=== PATIENT | male | born 1945 | race Caucasian/White ===

== ENCOUNTER 2020-05-17 10:27 | Inpatient (IN) ==
[2020-05-17] MEDS ORDERED: SODIUM CHLORIDE 0.9% 1000ML 1,000 ML IV SCH (11:00)
[2020-05-17] MEDS ORDERED: ONDANSETRON INJ 2 MG/ML 2 ML VIAL IV STA (11:04)
[2020-05-17 12:05] LABS: Hematocrit (blood only) 35.9 % (42-52); Hemoglobin 12.5 g/dL (14.0-18.0); Mean Corpuscular Hemoglobin 33.6 pg (25-34); Mean Corpuscular Hgb Conc 34.8 g/dL (32-36); Mean Corpuscular Volume 96.5 fL (80-100); Mean Platelet Volume 9.5 fL (7.4-10.4); Platelet Count 224 K/uL (130-400); RDW Coefficient of Variation 13.2 % (11.5-14.5); RDW Standard Deviation 46.2 fL (36.4-46.3); Red Blood Count 3.72 M/uL (4.7-6.1); White Blood Count 3.95 K/uL (4.8-10.8)
[2020-05-17 12:16] LABS: INR 1.1 (0.9-1.1); Prothrombin Time 11.9 Seconds (9.0-12.0)
--- NOTE | 2020-05-17 12:17 | XRay Report ---
XR chest 1V portable CLINICAL HISTORY: weakness COMPARISON STUDY: No previous studies for comparison. FINDINGS: The heart is normal in size. There are bilateral pulmonary airspace opacities. A multifocal pneumonia is favored over asymmetric edema. Correlation with Covid 19 testing is recommended. There are no pleural effusions.[ IMPRESSION: 1. Bilateral pulmonary airspace opacities. The findings likely represent a multifocal pneumonitis. Cl inical and radiographic follow-up is recommended. ACT 112: Negative or not required by law. Electronically signed by: Jon Sierra M.D. 05/17/2020 12:15 PM
[2020-05-17 12:21] LABS: Albumin Level 2.4 gm/dl (3.4-5.0); BUN Creatinine Ratio 18.2 (10-20); Calcium 8.2 mg/dl (8.5-10.1); Creatinine Clr Calc Pharmacy 53.9 ml/min; Est GFR (Non-African American) 53.5; Magnesium 2.6 mg/dl (1.8-2.4); Potassium 3.8 mmol/L (3.5-5.1)
[2020-05-17 12:31] LABS: D Dimer 1560 ug/L FEU (0-500)
[2020-05-17 12:34] LABS: Albumin Globulin Ratio 0.6 (0.9-2); Bilirubin,Total 0.8 mg/dl (0.2-1); Thyroid Stimulating Hormone 0.855 uIu/ml (0.300-4.500); Total Protein 6.4 gm/dl (6.4-8.2); Troponin I 0.021 ng/ml (0-0.045)
[2020-05-17 12:35] LABS: Basophils # (auto) 0.01 K/uL (0-0.2); Basophils % (auto) 0.3 %; Immature Granulocytes # (auto) 0.01 K/uL (0.00-0.02); Immature Granulocytes % (auto) 0.3 %; Lymphocytes # (auto) 0.97 K/uL (1.2-3.4); Lymphocytes % (auto) 24.6 %; Monocytes # (auto) 0.09 K/uL (0.11-0.59); Monocytes % (auto) 2.3 %; Neutrophils # (auto) 2.87 K/uL (1.4-6.5); Neutrophils % (auto) 72.5 %
[2020-05-17] MEDS ORDERED: OPTIRAY 320 125ml IV ONE (13:07)
--- NOTE | 2020-05-17 13:21 | CT Scan Report ---
CT ANGIOGRAPHY OF THE CHEST, PULMONARY EMBOLUS PROTOCOL CLINICAL HISTORY: PE, +dimer, COVID, SOB COMPARISON STUDY: Chest radiograph May 17, 2020. TECHNIQUE: Following IV administration of 114 mL of Optiray-320, helical axial images of the chest we re obtained utilizing the pulmonary embolus protocol. Maximal intensity projections and sagittal and coronal reformats were viewed on an independent 3D workstation. IV contrast was administered withou t complication. Automated exposure control was utilized for the study. A dose lowering technique wa s utilized adhering to the principles of ALARA. CT DOSE: 558.35 mGycm FINDINGS: No pulmonary emboli are present. Ascending thoracic aorta is ectatic, measuring 4.2 cm at the level of the main pulmonary artery. There is mild cardiomegaly. No pericardial effusion is noted. There is no pneumothorax. Note is made of mildly enlarged mediastinal and bilateral hilar lymph node s. Index left hilar node measures 1.4 cm in short axis diameter. There is no pneumothorax. Small bila teral pleural effusions are present. Extensive groundglass opacities and interlobular septal thickeni ng throughout the lungs are noted. The central airways are patent. There is no cavitation. Several ol d left rib fractures are noted. Upper abdomen is unremarkable. IMPRESSION: 1. No pulmonary emboli identified. 2. Extensive groundglass opacities with interlobular septal thickening within the lungs. The findings suggest multifocal pneumonia. Superimposed mild pulmonary edema may be present. 3. Small bilateral pleural effusions. 4. Mildly enlarged bilateral hilar and mediastinal lymph nodes. These are likely reactive however a f ollow-up chest CT in 3 months to ensure resolution is recommended. 4. Cardiomegaly. ACT 112: Negative or not required by law. Electronically signed by: Alejandro Corado M.D. 05/17/2020 1:20 PM
[2020-05-17] MEDS ORDERED: DEXAMETHASONE SOD INJ 10 MG/ML VIAL IV ONE (14:09)
--- NOTE | 2020-05-17 14:24 | Electrocardiogram Report ---
Test Reason : Blood Pressure : / mmHG Vent. Rate : 058 BPM Atrial Rate : 058 BPM P-R Int : 178 ms QRS Dur : 088 ms QT Int : 450 ms P-R-T Axes : 046 062 050 degrees QTc Int : 441 ms Sinus bradycardia Otherwise normal ECG When compared with ECG of 26-JUN-2010 16:35, No significant change was found Confirmed by Jamir Morales ([id number]) on 05/17/2020 2:23:45 PM Referred By: Alexis Coats Confirmed By:Jamir Morales
[2020-05-17 14:30] LABS: Appearance Urine Clear (Clear); Bacteria Urine Automated Negative (Negative); Blood Urine Trace (Negative); Color Urine Dark Yellow; Epithelial Cell Urine Auto >30 /lpf (0-5); Glucose Urine UA Negative (Negative); Ketones Urine 1+ (Negative); Leukocyte Esterase Urine Negative (Negative); Nitrite Urine Negative (Negative); Protein Urine 2+ (Negative); RBC Urine Automated 0-4 /hpf (0-4); Specific Gravity Urine > 1.045 (1.000-1.030); Urobilinogen Urine Negative (Negative)
[2020-05-17 14:46] LABS: Bilirubin Urine Negative (Negative); Ictotest Urine Negative (Negative)
[2020-05-17 15:04] LABS: Mucus Urine Present (None Prsent)
--- NOTE | 2020-05-17 15:49 | Emergency Department Note ---
Impression & Plan COVID-19, Hypoxia, Nausea, Weakness ED Provider Note Provider: Andre Eddy MD DATE OF SERVICE:05/17/2020 CHIEF COMPLAINT: Weakness, Covid, shortness of breath, nausea, diarrhea HISTORY OF PRESENT ILLNESS: Patient is a 74-year-old gentleman history of thyroid dysfunction presenting here today reporting that he tested positive for coronavirus just after Thanksgiving and has been sick since then with decreased intake and some shortness of breath. States has been monitoring his pulse ox at home and has been in the low 90s with any exertion dropped in the high 80s. Patient states has been having intermittent fevers and significant nausea and diarrhea. Patient states he feels very washed out and feels exuding way and just wasting away. Patient states he has been seen a week ago I [facility] as well as a few days ago at [facility] and sent home both times from the ER. Patient states feels things are getting worse and he needs help as he just feels too weak and dehydrated. Patient denies significant chest pain at this time. Patient denies a history of smoking. Denies leg swelling or rashes. Denies abdominal pain but again states he feels crampy and having diarrhea with nausea. No clear vomiting reported. No blood reported in the diarrhea. REVIEW OF SYSTEMS: A total of 10 review of systems was obtained and negative except as stated above in the HPI. PAST MEDICAL HISTORY: As noted above MEDICATIONS: Reviewed home medications SOCIAL HISTORY: lives at home [place] non-smoker PHYSICAL EXAM: GENERAL: alert and oriented in no acute distress on stretcher in mask Head: normocephalic and atraumatic EYES: No injection, discharge or icterus. NECK: Trachea midline. Supple. LUNGS: Airway patent. No retractions. HEART: Regular rate and rhythm. No chest wall tenderness ABDOMEN: Soft and non-tender, without guarding or rebound. SKIN: Acyanotic, warm, dry, without rashes EXTREMITIES: Without swelling, tenderness or deformity NEUROLOGICAL: No focal deficits. No aphasia. No facial droop or slurred speech. Ambulatory. EK beats minute sinus bradycardia without PVC or PAC. No acute ST segment elevation or depression. Normal QRS duration and normal axis. QTc within normal limits CONTINUOUS CARDIAC MONITORING: was ordered and showed a heart rate of 60 bpm normal sinus rhythm Patient's laboratory studies and imaging reviewed. Differential includes Infection, dehydration, metabolic abnormality, hypo/hyperglycemia, electrolyte disturbance, anemia, hypoxia, cardiac sources, intracerebral event, toxicologic, neurologic, as well as other pathologies. IMPRESSION/MEDICAL DECISION MAKING: Patient maintained on isolation with known history of coronavirus infection with significant weakness during the infection as well as GI symptoms. No significant abdominal pain and lower suspicion for acute intra-abdominal path ology or perforation or diverticulitis or appendicitis or cholecystitis. Patient does desaturate with any exertion and even at resting his 89 to 90% on room air. No underlying history of lung disease reported. Does not appear in respiratory distress but quite fatigued and has been evaluated multiple times previously at other institutions. Blood work shows some lymphopenia consistent with coronavirus infection. He dimer is elevated and CT of the chest with complete without evidence of blood clots but inflammatory changes and some inflamed lymph nodes. Slight hyponatremia of 131 is noted but renal function is not significantly abnormal without a clear known baseline. Troponin detectable abnormal again not having significant chest pain. TSH within normal limits and lipase is not elevated not indicative of pancreatitis. AST slightly elevated consistent with coronavirus infection. Patient was on dexamethasone given the hypoxia needing a little bit of oxygen here. Patient rehydrated IV fluids given Zofran and was given some crackers and matthew chinmay to try to orally hydrate. Given significant fatigue, GI symptoms, weakness and oxygen requirement and discussed with the patient he wished for further observation care here at the hospital. The hospitalist contacted. I doubt acute bacterial infection at this time. DIAGNOSIS: COVID-19, nausea, hypoxia, weakness DISPOSITION: Hospitalist will evaluate Patient was agreeable with this plan. Past Med/Surg History Medical History (Updated 05/17/20 @ 16:23 by Angel Starr MD) History of prostate cancer Hypothyroidism Surgical History (Updated 05/17/20 @ 16:23 by Angel Starr MD) History of appendectomy History of back surgery 2011 L2-4 fusion History of prostatectomy Social History Smoking Status: Never smoker Feels Safe at Home: Yes Allergies Allergies Allergy/AdvReac Type Severity Reaction Status Date / Time No Known Drug Allergies Allergy Unknown . Verified 05/17/20 13:34 Home Meds Home Medications Medication Instructions Recorded Confirmed aspirin 81 mg PO QAM #0 06/26/10 05/17/20 acetaminophen [Tylenol Extra 1,000 mg PO Q6H PRN 05/17/20 05/17/20 Strength] cholecalciferol (vitamin D3) 25 mcg PO QAM 05/17/20 05/17/20 [Vitamin D3] levothyroxine 88 mcg PO QAM 05/17/20 05/17/20 zinc 50 mg PO QAM 05/17/20 05/17/20 Results & Data (ED) Vital Signs Vital Signs - 24 hr 05/17/20 10:39 05/17/20 11:45 05/17/20 13:15 Temperature 36.6 C Temperature Source Temporal Artery Scan Pulse Rate 68 Pulse Rate [Left Finger] 58 L Respiratory Rate 20 18 Blood Pressure 90/63 L Blood Pressure [Left Arm] 113/69 Blood Pressure Mean 72 Blood Pressure Mean [Left Arm] 83 Pulse Oximetry 92 92 90 Oxygen Delivery Method Room Air Room Air Room Air Oxygen Flow Rate 2 Sepsis Recent Fever Within 48 Hours No Sepsis New/Unexplained Change in Mental Status N/A Sepsis Action Taken by Nursing No Action Required 05/17/20 13:52 05/17/20 14:03 05/17/20 14:04 Temperature Temperature Source Pulse Rate Pulse Rate [Left Finger] 59 L Respiratory Rate 20 Blood Pressure Blood Pressure [Left Arm] 128/76 Blood Pressure Mean Blood Pressure Mean [Left Arm] 93 Pulse Oximetry 97 90 93 Oxygen Delivery Method Nasal Cannula Room Air Nasal Cannula Oxygen Flow Rate 2 2 2 Sepsis Recent Fever Within 48 Hours Sepsis New/Unexplained Change in Mental Status Sepsis Action Taken by Nursing 05/17/20 15:21 Temperature Temperature Source Pulse Rate Pulse Rate [Left Finger] 61 Respiratory Rate 18 Blood Pressure Blood Pressure [Left Arm] 112/63 Blood Pressure Mean Blood Pressure Mean [Left Arm] 79 Pulse Oximetry 99 Oxygen Delivery Method Nasal Cannula Oxygen Flow Rate 2 Sepsis Recent Fever Within 48 Hours Sepsis New/Unexplained Change in Mental Status Sepsis Action Taken by Nursing Laboratory Data Result diagrams: 05/17/20 11:49 05/17/20 11:49 Lab Results 05/17/20 05/17/20 05/17/20 Range/Units 11:49 11:49 11:49 WBC 3.95 L (4.8-10.8) K/uL RBC 3.72 L (4.7-6.1) M/uL Hgb 12.5 L (14.0-18.0) g/dL Hct 35.9 L (42-52) % MCV 96.5 (80-100) fL MCH 33.6 (25-34) pg MCHC 34.8 (32-36) g/dL RDW Std Deviation 46.2 (36.4-46.3) fL RDW Coeff of Amalia 13.2 (11.5-14.5) % Plt Count 224 (130-400) K/uL MPV 9.5 (7.4-10.4) fL Immature Gran % (Auto) 0.3 % Neut % (Auto) 72.5 % Lymph % (Auto) 24.6 % Cocke % (Auto) 2.3 % Eos % (Auto) 0.0 % Baso % (Auto) 0.3 % Neut # (Auto) 2.87 (1.4-6.5) K/uL Lymph # (Auto) 0.97 L (1.2-3.4) K/uL Cocke # (Auto) 0.09 L (0.11-0.59) K/uL Eos # (Auto) 0.00 (0-0.5) K/uL Baso # (Auto) 0.01 (0-0.2) K/uL Immature Gran # (Auto) 0.01 (0.00-0.02) K/uL PT 11.9 (9.0-12.0) Seconds INR 1.1 (0.9-1.1) D-Dimer 1560 H* (0-500) ug/L FEU Sodium 131 L (136-145) mmol/L Potassium 3.8 (3.5-5.1) mmol/L Chloride 100 (98-107) mmol/L Carbon Dioxide 24 (21-32) mmol/L Anion Gap 7.0 (3-11) BUN 24 H (7-18) mg/dl Creatinine 1.32 (0.6-1.4) mg/dl Est Cr Clr Drug Dosing 53.9 ml/min Est GFR ( Amer) 62.0 Est GFR (Non-Af Amer) 53.5 BUN/Creatinine Ratio 18.2 (10-20) Glucose 123 H (70-99) mg/dl Lactate (0.4-2.0) mmol/L Calcium 8.2 L (8.5-10.1) mg/dl Magnesium 2.6 H (1.8-2.4) mg/dl Total Bilirubin 0.8 (0.2-1) mg/dl AST 57 H (15-37) U/L ALT 50 (12-78) U/L Alkaline Phosphatase 105 (45-117) U/L Lactate Dehydrogenase (87-241) U/L Total Creatine Kinase (39-308) U/L Troponin I 0.021 (0-0.045) ng/ml C-Reactive Protein (0-0.29) mg/dl Total Protein 6.4 (6.4-8.2) gm/dl Albumin 2.4 L (3.4-5.0) gm/dl Globulin 4.0 (2.5-4.0) gm/dl Albumin/Globulin Ratio 0.6 L (0.9-2) Lipase 355 (73-393) U/L Procalcitonin (0-0.5) ng/ml TSH 0.855 (0.300-4.500) uIu/ml Urine Color Urine Appearance (Clear) Urine pH (4.5-7.5) Ur Specific [place] (1.000-1.030) Urine Protein (Negative) Urine Glucose (UA) (Negative) Urine Ketones (Negative) Urine Blood (Negative) Urine Nitrite (Negative) Urine Bilirubin (Negative) Urine Urobilinogen (Negative) Ur Leukocyte Esterase (Negative) Urine WBC (Auto) (0-5) /hpf Urine RBC (Auto) (0-4) /hpf U Hyaline Cast (Auto) (0-5) /lpf U Epithel Cells (Auto) (0-5) /lpf Urine Bacteria (Auto) (Negative) Ur Renal Epithelial Cell Granular Casts (0) /lpf WBC Casts (0) /lpf Urine Mucus (None Prsent) Urine Yeast 05/17/20 05/17/20 05/17/20 Range/Units 11:49 11:49 11:50 WBC (4.8-10.8) K/uL RBC (4.7-6.1) M/uL Hgb (14.0-18.0) g/dL Hct (42-52) % MCV (80-100) fL MCH (25-34) pg MCHC (32-36) g/dL RDW Std Deviation (36.4-46.3) fL RDW Coeff of Amalia (11.5-14.5) % Plt Count (130-400) K/uL MPV (7.4-10.4) fL Immature Gran % (Auto) % Neut % (Auto) % Lymph % (Auto) % [place]ke % (Auto) % Eos % (Auto) % Baso % (Auto) % Neut # (Auto) (1.4-6.5) K/uL Lymph # (Auto) (1.2-3.4) K/uL [place] # (Auto) (0.11-0.59) K/uL Eos # (Auto) (0-0.5) K/uL Baso # (Auto) (0-0.2) K/uL Immature Gran # (Auto) (0.00-0.02) K/uL PT (9.0-12.0) Seconds INR (0.9-1.1) D-Dimer (0-500) ug/L FEU Sodium (136-145) mmol/L Potassium (3.5-5.1) mmol/L Chloride (98-107) mmol/L Carbon Dioxide (21-32) mmol/L Anion Gap (3-11) BUN (7-18) mg/dl Creatinine (0.6-1.4) mg/dl Est Cr Clr Drug Dosing ml/min Est GFR ( Amer) Est GFR (Non-Af Amer) BUN/Creatinine Ratio (10-20) Glucose (70-99) mg/dl Lactate 1.2 (0.4-2.0) mmol/L Calcium (8.5-10.1) mg/dl Magnesium (1.8-2.4) mg/dl Total Bilirubin (0.2-1) mg/dl AST (15-37) U/L ALT (12-78) U/L Alkaline Phosphatase (45-117) U/L Lactate Dehydrogenase 389 H (87-241) U/L Total Creatine Kinase (39-308) U/L Troponin I (0-0.045) ng/ml C-Reactive Protein (0-0.29) mg/dl Total Protein (6.4-8.2) gm/dl Albumin (3.4-5.0) gm/dl Globulin (2.5-4.0) gm/dl Albumin/Globulin Ratio (0.9-2) Lipase (73-393) U/L Procalcitonin 0.28 (0-0.5) ng/ml TSH (0.300-4.500) uIu/ml Urine Color Urine Appearance (Clear) Urine pH (4.5-7.5) Ur Specific [place] (1.000-1.030) Urine Protein (Negative) Urine Glucose (UA) (Negative) Urine Ketones (Negative) Urine Blood (Negative) Urine Nitrite (Negative) Urine Bilirubin (Negative) Urine Urobilinogen (Negative) Ur Leukocyte Esterase (Negative) Urine WBC (Auto) (0-5) /hpf Urine RBC (Auto) (0-4) /hpf U Hyaline Cast (Auto) (0-5) /lpf U Epithel Cells (Auto) (0-5) /lpf Urine Bacteria (Auto) (Negative) Ur Renal Epithelial Cell Granular Casts (0) /lpf WBC Casts (0) /lpf Urine Mucus (None Prsent) Urine Yeast 05/17/20 05/17/20 Range/Units 11:50 13:55 WBC (4.8-10.8) K/uL RBC (4.7-6.1) M/uL Hgb (14.0-18.0) g/dL Hct (42-52) % MCV (80-100) fL MCH (25-34) pg MCHC (32-36) g/dL RDW Std Deviation (36.4-46.3) fL RDW Coeff of Amalia (11.5-14.5) % Plt Count (130-400) K/uL MPV (7.4-10.4) fL Immature Gran % (Auto) % Neut % (Auto) % Lymph % (Auto) % [place] % (Auto) % Eos % (Auto) % Baso % (Auto) % Neut # (Auto) (1.4-6.5) K/uL Lymph # (Auto) (1.2-3.4) K/uL [place] # (Auto) (0.11-0.59) K/uL Eos # (Auto) (0-0.5) K/uL Baso # (Auto) (0-0.2) K/uL Immature Gran # (Auto) (0.00-0.02) K/uL PT (9.0-12.0) Seconds INR (0.9-1.1) D-Dimer (0-500) ug/L FEU Sodium (136-145) mmol/L Potassium (3.5-5.1) mmol/L Chloride (98-107) mmol/L Carbon Dioxide (21-32) mmol/L Anion Gap (3-11) BUN (7-18) mg/dl Creatinine (0.6-1.4) mg/dl Est Cr Clr Drug Dosing ml/min Est GFR ( Amer) Est GFR (Non-Af Amer) BUN/Creatinine Ratio (10-20) Glucose (70-99) mg/dl Lactate (0.4-2.0) mmol/L Calcium (8.5-10.1) mg/dl Magnesium (1.8-2.4) mg/dl Total Bilirubin (0.2-1) mg/dl AST (15-37) U/L ALT (12-78) U/L Alkaline Phosphatase (45-117) U/L Lactate Dehydrogenase (87-241) U/L Total Creatine Kinase 115 (39-308) U/L Troponin I (0-0.045) ng/ml C-Reactive Protein 11.50 H (0-0.29) mg/dl Total Protein (6.4-8.2) gm/dl Albumin (3.4-5.0) gm/dl Globulin (2.5-4.0) gm/dl Albumin/Globulin Ratio (0.9-2) Lipase (73-393) U/L Procalcitonin (0-0.5) ng/ml TSH (0.300-4.500) uIu/ml Urine Color Dark Yellow Urine Appearance Clear (Clear) Urine pH 5.0 (4.5-7.5) Ur Specific [place] > 1.045 H (1.000-1.030) Urine Protein 2+ H (Negative) Urine Glucose (UA) Negative (Negative) Urine Ketones 1+ H (Negative) Urine Blood Trace H (Negative) Urine Nitrite Negative (Negative) Urine Bilirubin Negative (Negative) Urine Urobilinogen Negative (Negative) Ur Leukocyte Esterase Negative (Negative) Urine WBC (Auto) 5-10 H (0-5) /hpf Urine RBC (Auto) 0-4 (0-4) /hpf U Hyaline Cast (Auto) 1-5 (0-5) /lpf U Epithel Cells (Auto) >30 H (0-5) /lpf Urine Bacteria (Auto) Negative (Negative) Ur Renal Epithelial Cell Not Reportable Granular Casts 1-5 H (0) /lpf WBC Casts 1-5 H (0) /lpf Urine Mucus Present A (None Prsent) Urine Yeast Not Reportable Administered Medications Discontinued Medications Dexamethasone (Dexamethasone Sod Inj 10 Mg/Ml Vial) 6 mg IV NOW ONE Stop: 05/17/20 14:10 Last Admin: 05/17/20 15:19 Dose: 6 mg Documented by: [id number] Sodium Chloride (Nss 1000ml) 1,000 mls @ 999 mls/hr IV .Q1H1M SARTHAK Stop: 05/17/20 12:00 Last Infusion: 05/17/20 12:59 Dose: 0 mls/hr Documented by: [id number] Admin: 05/17/20 11:48 Dose: 999 mls/hr Documented by: [id number] Ioversol (Optiray 320 125ml) 114 ml IV ONCE ONE Stop: 05/17/20 13:08 Last Admin: 05/17/20 13:07 Dose: 114 ml Documented by: [id number] Ondansetron HCl (Ondansetron Inj 2 Mg/Ml 2 Ml Vial) 4 mg IV NOW STA Stop: 05/17/20 11:05 Last Admin: 05/17/20 11:47 Dose: 4 mg Documented by: [id number] Discharge Plan Visit Data Chief Complaint: Illness Stated Complaint: COVID +,RUN DOWN ED Provider: Andre Eddy Discharge Problem: COVID-19, Hypoxia, Nausea, Weakness Patient Disposition: Being Evaluated by Hospitalist Condition: Good
--- NOTE | 2020-05-17 16:20 | History & Physical Report ---
Date of Service May 17, 2020 Assessment & Plan (1) COVID-19: Dexamethasone 6mg IV daily for 10 days, hypoxia < 94% and continued inflammation on labs and CXR. Given duration and severity of illness suspect no benefit from remdesivir or convalescent plasma. IV NSS (2) Hypoxia: Aim O2 sats > 90%. Procalcitonin negative for bacterial PNA. (3) Hypothyroidism: Continue levothyroxine 88 mcg PO daily (4) DVT prophylaxis: Elevated d-dimer. No tachycardia to suggest PE. However will treat with higher dose lovenox 40mg SQ BID. History of Present Illness Chief Complaint: Multiple COVID-19 symptoms Primary Care Provider: Alexis Doe is a 74-year-old male who presents to the ER with COVID-19. He reports his symptoms started on May 05. He reports fevers, chills, fatigue, myalgias, shortness of breath, dry cough, headache, diarrhea. Initially felt he was improving however for the last week has just been getting increasingly fatigued with recurrent fevers. He has been measuring his oxygen saturations at home which have been 88-92% on RA. This is his third emergency room visit and he no longer feels he can cope at home. He lives with his who he reports is doing well and tested negative for COVID-19 In the ER his O2 sats < 90% on RA therefore he was started on [address] reassuringly showed no pulmonary emboli, however, he has extensive groundglass opacities bilaterally. Allergies Allergy/AdvReac Type Severity Reaction Status Date / Time No Known Drug Allergies Allergy Unknown . Verified 05/17/20 13:34 Home Medications Medication Instructions Recorded Confirmed Type aspirin 81 mg PO QAM #0 06/26/10 05/17/20 History acetaminophen [Tylenol Extra 1,000 mg PO Q6H PRN 05/17/20 05/17/20 History Strength] cholecalciferol (vitamin D3) 25 mcg PO QAM 05/17/20 05/17/20 History [Vitamin D3] levothyroxine 88 mcg PO QAM 05/17/20 05/17/20 History zinc 50 mg PO QAM 05/17/20 05/17/20 History Past Med/Surg History Medical History (Updated 05/18/20 @ 06:32 by Angel Starr MD) History of prostate cancer Hypothyroidism Surgical History (Updated 05/17/20 @ 16:23 by Angel Starr MD) History of appendectomy History of back surgery 2011 L2-4 fusion History of prostatectomy Social History Smoking Status: Never smoker Second Hand Exposure: No; Do You Dip or Chew Tobacco: No; Tobacco Cessation Education Requested by Patient: No Hx Alcohol Use: Yes Alcohol type: beer and wine Hx Substance Use: No Preferred Language: Armenian Communication Ability: Effective Supervisory Civil Engineer Required: No Beliefs That Will Affect Care: None Current Living Situation: Spouse Other Information That Helps Us Care for You: No Feels Safe at Home: Yes Safety Concerns: Feels Safe At This Time Assistive Devices: None Review of Systems Review of Systems: All systems reviewed & are unremarkable except as noted in HPI & below Constitutional: + fever, + chills, + body aches, + fatigue and + weakness Respiratory: + dyspnea Cardiovascular: no orthopnea and no paroxysmal nocturnal dyspnea Physical Exam Constitutional: well developed and well nourished; no acute distress Eyes: + anicteric sclerae; normal pupil size ENMT: external ear and nose normal, oropharynx normal Neck: trachea midline, no thyromegaly Respiratory: normal respiratory effort, lungs clear to auscultation (Poor inspiratory effort) Auscultation: no diminished lung sounds and no wheezes Cardiovascular: RRR, no murmur, no edema Gastrointestinal (Abdomen): normal bowel sounds, soft, nontender, no hepatosplenomegaly Musculoskeletal: no cyanosis or clubbing, extremities motor strength 5/5 Skin: no rashes, warm and dry Neurologic: moves all extremities and awake; no focal motor deficits (No lateralizing deficit) and not confused Psychiatric: A+Ox3, euthymic affect Genitourinary: no CVA tenderness Results & Data Results & Data ([facility]) Vital Signs (Past 12 Hours) Vital Signs Temp Pulse Pulse Resp BP BP Pulse Ox 05/17/20 15:21 61 18 112/63 99 05/17/20 14:04 93 05/17/20 14:03 90 05/17/20 13:52 59 L 20 128/76 97 05/17/20 13:15 90 05/17/20 11:45 58 L 18 113/69 92 05/17/20 10:39 36.6 C 68 20 90/63 L 92 Diagnostic Findings XR chest 1V portable IMPRESSION: 1. Bilateral pulmonary airspace opacities. The findings likely represent a multifocal pneumonitis. Clinical and radiographic follow-up is recommended. CT ANGIOGRAPHY OF THE CHEST, PULMONARY EMBOLUS PROTOCOL IMPRESSION: 1. No pulmonary emboli identified. 2. Extensive groundglass opacities with interlobular septal thickening within the lungs. The findings suggest multifocal pneumonia. Superimposed mild pulmonary edema may be present. 3. Small bilateral pleural effusions. 4. Mildly enlarged bilateral hilar and mediastinal lymph nodes. These are likely reactive however a follow-up chest CT in 3 months to ensure resolution is recommended. 4. Cardiomegaly. Medications Administered ER medications given: None ECG Indication: bradycardia Rate (beats per minute): 58 Rhythm: sinus bradycardia Comparison ECG Date: from (June 26, 2010) Change: no significant change Code Status & VTE Plan Code Status Full VTE Prophylaxis Plan VTE Prophylaxis will be ordered: Yes PG Care Time/CCT Total # of Minutes Spent Total Time Spent with Patient: Total time spent is greater than 50% in coordination of care (as documented) at patient's floor/unit and/or counseling patient: Coding Level of Care Code 86323 OBS Care - Level 2 Diagnoses COVID-19 U07.1 Hypoxia R09.02 Hypothyroidism E03.9 DVT prophylaxis Z29.9
[2020-05-17 16:52] LABS: C Reactive Protein 11.5 mg/dl (0-0.29)
[2020-05-17] MEDS ORDERED: ACETAMINOPHEN 500 MG TAB PO PRN (19:51)
[2020-05-17] MEDS: ENOXAPARIN INJ 40 MG/0.4 ML SYR SQ SCH (21:37)
[2020-05-18] MEDS: LEVOTHYROXINE SODIUM 88 MCG TABLET PO SCH (05:39)
[2020-05-18] MEDS ORDERED: SODIUM CHLORIDE 0.9% 1000ML 1,000 ML IV SCH (06:45)
[2020-05-18 07:36] LABS: Hematocrit (blood only) 37.5 % (42-52); Hemoglobin 13.1 g/dL (14.0-18.0); Mean Corpuscular Hemoglobin 33.2 pg (25-34); Mean Corpuscular Hgb Conc 34.9 g/dL (32-36); Mean Corpuscular Volume 95.2 fL (80-100); Mean Platelet Volume 9.7 fL (7.4-10.4); Platelet Count 239 K/uL (130-400); RDW Coefficient of Variation 13.2 % (11.5-14.5); RDW Standard Deviation 46.5 fL (36.4-46.3); Red Blood Count 3.94 M/uL (4.7-6.1); White Blood Count 3.58 K/uL (4.8-10.8)
[2020-05-18] MEDS: ASPIRIN 81 MG ECTAB PO SCH (07:47)
[2020-05-18] MEDS: ENOXAPARIN INJ 40 MG/0.4 ML SYR SQ SCH ×2 (07:47→20:08)
[2020-05-18] MEDS: CHOLECALCIFEROL 1,000 UNITS 25 MCG TAB PO SCH (07:47)
[2020-05-18 07:54] LABS: Albumin Level 2.1 gm/dl (3.4-5.0); BUN Creatinine Ratio 20.4 (10-20); Calcium 8.6 mg/dl (8.5-10.1); Creatinine Clr Calc Pharmacy 65.2 ml/min; Est GFR (African American) 78.2; Est GFR (Non-African American) 67.5; Potassium 4.3 mmol/L (3.5-5.1)
[2020-05-18 07:59] LABS: Albumin Globulin Ratio 0.6 (0.9-2); Bilirubin,Total 0.6 mg/dl (0.2-1); Globulin 3.8 gm/dl (2.5-4.0); Total Protein 5.9 gm/dl (6.4-8.2)
[2020-05-18 08:02] LABS: Immature Granulocytes # (auto) 0.01 K/uL (0.00-0.02); Immature Granulocytes % (auto) 0.3 %; Lymphocytes % (auto) 19.6 %; Monocytes # (auto) 0.11 K/uL (0.11-0.59); Monocytes % (auto) 3.1 %; Neutrophils # (auto) 2.76 K/uL (1.4-6.5)
[2020-05-18] MEDS: dexAMETHasone 6 MG in SYRINGE 0 ML IV SCH (08:15)
[2020-05-18] MEDS ORDERED: IBUPROFEN 200 MG TAB PO PRN (16:04)
[2020-05-18] MEDS ORDERED: IBUPROFEN 200 MG TAB PO ONE (16:08)
--- NOTE | 2020-05-18 19:55 | Hospitalist Progress Note ---
Date of Service May 18, 2020 Assessment & Plan (1) COVID-19: Contracted a family gathering at [facility] Outpatient testing was Covid positive shortly after [facility] Continue dexamethasone Patient is outside of the window for effective treatment with remdesivir or convalescent plasma Continue supportive care with supplemental oxygen Continue to wean oxygen as tolerated to maintain SaO2 at 94% or greater. Will start enoxaparin at 0.5 mg/kg twice daily prophylactically CTA negative for pulmonary emboli Continue supportive care (2) Hypoxia: Secondary to COVID-19 No history of pulmonary disease or hypoxia in the past Continue to wean supplemental O2 to maintain SaO2 greater than 94% (3) Hypothyroidism: Continue levothyroxine (4) DVT prophylaxis: Start enoxaparin 40 mg twice daily Admission and Anticipated Discharge Date Admission Date: May 17, 2020 Subjective Attending: Dr. Wisam Pimentel This is a 74-year-old male that contracted Covid 19 from family gathering for [facility]. He had family members in from various parts of the [facility]. He had a positive Covid test just after [facility] and since that time has had increasing shortness of breath and hypoxia. He does have a pulse oximeter at home and states that he was in the low 90s and then dropped into the high 80s. He is also been having fever as well as diarrhea. T-max here is 38.5. Patient reports that he is having sweats throughout the night and last night had to change his hospital gown as well as the bed linens 2 or 3 times. He is refusing Tylenol to reduce fever and is much as he feels that it makes him sweat more. He is willing to try ibuprofen as an antipyretic. At this point he does not have any chest pain or tightness. He is requiring supplemental oxygen and was on 3 L and saturating 93% at the time of my visit. Patient was started on dexamethasone and is tolerating well. He is outside of the window for remdesivir and convalescent plasma. Review of Systems Review of Systems: All systems reviewed & are unremarkable except as noted in Subjective Physical Exam Physical Exam: GENERAL : No acute distress EYES: No icterus, gaze conjugate NOSE: No evidence of epistaxis MOUTH: No lesions or candidiasis NECK: Supple LUNGS: Cough with deep inspiration. Otherwise, CTA B/L, no wheezes, rales or rhonchi HEART: Regular, rate controlled at rest. Patient does get tachycardic in the low 100s with minimal exertion ABDOMEN: Soft, NT, ND, BS Present EXTREMITIES: No LE edema, pedal pulses intact NEURO: A&OX3 Results & Data Results & Data ([facility]) Vital Signs (Past 12 Hours) Vital Signs Temp Pulse Resp BP Pulse Ox 05/18/20 19:40 36.8 C 68 16 108/85 94 05/18/20 15:34 38.2 C H 67 18 131/82 91 05/18/20 13:38 38.3 C H 72 18 131/77 91 05/18/20 12:51 37.2 C 05/18/20 08:00 37.0 C 66 20 133/74 96 Laboratory Results 05/18/20 07:25 05/18/20 07:25 05/17/20 11:49 Troponin I 0.[address] ANGIOGRAPHY OF THE CHEST, PULMONARY EMBOLUS PROTOCOL CLINICAL HISTORY: PE, +dimer, COVID, SOB COMPARISON STUDY: Chest radiograph May 17, 2020. TECHNIQUE: Following IV administration of 114 mL of Optiray-320, helical axial images of the chest were obtained utilizing the pulmonary embolus protocol. Maximal intensity projections and sagittal and coronal reformats were viewed on an independent 3D workstation. IV contrast was administered without complication. Automated exposure control was utilized for the study. A dose lowering technique was utilized adhering to the principles of ALARA. CT DOSE: 558.35 mGycm FINDINGS: No pulmonary emboli are present. Ascending thoracic aorta is ectatic, measuring 4.2 cm at the level of the main pulmonary artery. There is mild c ardiomegaly. No pericardial effusion is noted. There is no pneumothorax. Note is made of mildly enlarged mediastinal and bilateral hilar lymph nodes. Index left hilar node measures 1.4 cm in short axis diameter. There is no pneumothorax. Small bilateral pleural effusions are present. Extensive groundglass opacities and interlobular septal thickening throughout the lungs are noted. The central airways are patent. There is no cavitation. Several old left rib fractures are noted. Upper abdomen is unremarkable. IMPRESSION: 1. No pulmonary emboli identified. 2. Extensive groundglass opacities with interlobular septal thickening within the lungs. The findings suggest multifocal pneumonia. Superimposed mild pulmonary edema may be present. 3. Small bilateral pleural effusions. 4. Mildly enlarged bilateral hilar and mediastinal lymph nodes. These are likely reactive however a follow-up chest CT in 3 months to ensure resolution is recommended. 4. Cardiomegaly. Electronically signed by: Alejandro Corado M.D. 05/17/2020 1:20 PM PG Care Time/CCT Total # of Minutes Spent Total Time Spent with Patient: Total time spent is greater than 50% in coordination of care (as documented) at patient's floor/unit and/or counseling patient: 30 minutes Coding Level of Care Code 79081 Subseq Hosp Care Lvl 2 Diagnoses COVID-19 U07.1 Hypoxia R09.02 Hypothyroidism E03.9 DVT prophylaxis Z29.9 Time Spent (min) 30
[2020-05-18] MEDS ORDERED: ENOXAPARIN INJ 40 MG/0.4 ML SYR SQ SCH (20:00)
[2020-05-19] MEDS: LEVOTHYROXINE SODIUM 88 MCG TABLET PO SCH (05:31)
[2020-05-19] MEDS: ASPIRIN 81 MG ECTAB PO SCH (08:03)
[2020-05-19] MEDS: CHOLECALCIFEROL 1,000 UNITS 25 MCG TAB PO SCH (08:03)
[2020-05-19] MEDS: ENOXAPARIN INJ 40 MG/0.4 ML SYR SQ SCH ×2 (08:04→20:49)
[2020-05-19] MEDS: dexAMETHasone 6 MG in SYRINGE 0 ML IV SCH (09:32)
[2020-05-19] MEDS ORDERED: POLYETHYLENE (MIRALAX) 17 GM PACK PO PRN (12:41)
[2020-05-19] MEDS: DOCUSATE SODIUM 100 MG CAP PO SCH ×2 (13:33→20:49)
--- NOTE | 2020-05-19 16:05 | Hospitalist Progress Note ---
Date of Service May 19, 2020 Assessment & Plan (1) COVID-19: Contracted a family gathering at [facility] Outpatient testing was Covid positive shortly after [facility] Continue dexamethasone - this is day # 3 Patient is outside of the window for effective treatment with remdesivir or convalescent plasma Continue supportive care with supplemental oxygen Continue to wean oxygen as tolerated to maintain SaO2 at 94% or greater. Continue enoxaparin at 0.5 mg/kg twice daily prophylactically CTA negative for pulmonary emboli Continue supportive care (2) Hypoxia: Secondary to COVID-19 No history of pulmonary disease or hypoxia in the past Continue to wean supplemental O2 to maintain SaO2 greater than 94% Order placed in chart to ambulate patient in hallway with 2 L/min via nasal cannula (3) Hypothyroidism: Continue levothyroxine (4) DVT prophylaxis: Continue enoxaparin 40 mg twice daily Admission and Anticipated Discharge Date Admission Date: May 19, 2020 Subjective Attending: Dr. Wisam Pimentel Patient is much improved from yesterday. He is walking the weir. He does not have oxygen on and did desaturate to 87% SaO2. Back in his room he was placed back on 2 L/min by nasal cannula and recovered to 96% fairly quickly. He denies any fever since yesterday afternoon. He had no night sweats last night. His shortness of breath is improving. His cough is improving. He has no acute complaints today. Review of Systems Review of Systems: All systems reviewed & are unremarkable except as noted in Subjective Physical Exam Physical Exam: GENERAL : No acute distress EYES: No icterus, gaze conjugate NOSE: No evidence of epistaxis MOUTH: No lesions or candidiasis NECK: Supple LUNGS: Lungs are generally clear to auscultation bilaterally but do have some decrease at the bases. HEART: Regular, rate controlled in the 80s. No appreciation of ectopy ABDOMEN: Soft, NT, ND, BS Present EXTREMITIES: No LE edema, pedal pulses intact NEURO: A&OX3 Results & Data Results & Data ([facility]) Vital Signs (Past 12 Hours) Vital Signs Temp Pulse Resp BP Pulse Ox 05/19/20 15:29 36.5 C 59 L 16 122/78 97 05/19/20 11:10 36.3 C L 59 L 18 137/80 93 05/19/20 09:28 96 05/19/20 07:30 37.1 C 57 L 16 114/68 91 05/19/20 04:44 36.8 C 57 L 16 103/60 93 Laboratory Results 05/18/20 07:25 05/18/20 07:25 Diagnostic Findings No new imaging since 05/17/2020 PG Care Time/CCT Total # of Minutes Spent Total Time Spent with Patient: Total time spent is greater than 50% in coordination of care (as documented) at patient's floor/unit and/or counseling patient: 30minutes Coding Level of Care Code 13237 Subseq Hosp Care Lvl 2 Diagnoses COVID-19 U07.1 Hypoxia R09.02 Hypothyroidism E03.9 DVT prophylaxis Z29.9
[2020-05-20] MEDS: LEVOTHYROXINE SODIUM 88 MCG TABLET PO SCH (05:52)
[2020-05-20 08:33] LABS: Creatinine Clr Calc Pharmacy 74.1 ml/min; Est GFR (African American) 91.2; Est GFR (Non-African American) 78.7
[2020-05-20] MEDS: ENOXAPARIN INJ 40 MG/0.4 ML SYR SQ SCH (09:38)
[2020-05-20] MEDS: DOCUSATE SODIUM 100 MG CAP PO SCH (09:38)
[2020-05-20] MEDS: ASPIRIN 81 MG ECTAB PO SCH (09:38)
[2020-05-20] MEDS: dexAMETHasone 6 MG in SYRINGE 0 ML IV SCH (09:38)
[2020-05-20] MEDS: CHOLECALCIFEROL 1,000 UNITS 25 MCG TAB PO SCH (09:39)
--- NOTE | 2020-05-20 12:57 | Discharge Summary ---
Date of Service May 20, 2020 Admission HPI Per Admitting Provider Jimenez Doe is a 74-year-old male who presents to the ER with COVID-19. He reports his symptoms started on May 05. He reports fevers, chills, fatigue, myalgias, shortness of breath, dry cough, headache, diarrhea. Initially felt he was improving however for the last week has just been getting increasingly fatigued with recurrent fevers. He has been measuring his oxygen saturations at home which have been 88-92% on RA. This is his third emergency room visit and he no longer feels he can cope at home. He lives with his who he reports is doing well and tested negative for COVID-19 In the ER his O2 sats < 90% on RA therefore he was started on [address] reassuringly showed no pulmonary emboli, however, he has extensive groundglass opacities bilaterally. Principal Diagnosis COVID 19 pneumonia Discharge Exam Constitutional WD/WN, vitals as above no acute distress Neck trachea midline, no thyromegaly Respiratory normal respiratory effort, lungs clear to auscultation Cardiovascular RRR, no murmur, no edema Gastrointestinal (Abdomen) normal bowel sounds, soft, nontender, no hepatosplenomegaly Musculoskeletal no cyanosis or clubbing, extremities motor strength 5/5 Skin no rashes, warm and dry Neurologic patellar DTR's 2+ bilat, sensation intact and PERRL, EOMI, accommodation nl, no face palsy, no dysarthria Psychiatric A+Ox3, euthymic affect Lymphatic no cervical or axillary lymphadenopathy Discharge Data Allergies Allergy/AdvReac Type Severity Reaction Status Date / Time No Known Drug Allergies Allergy Unknown . Verified 05/17/20 13:34 Consultations 05/17/20 14:22 ED Decision to Admit Stat Ordered Studies 05/17/20 12:35 CT angio chest PE protocol Stat Hospital Course (1) COVID-19: Contracted a family gathering at [facility] Outpatient testing was Covid positive shortly after Continue dexamethasone - this is day # 4 continue for three more days, 6mg PO daily, shorter course as he is off oxygen, breathing comfortably Patient is outside of the window for effective treatment with remdesivir or convalescent plasma given supportive care with supplemental oxygen while admitted weaned down to room air, performed two step that showed he did NOT need any oxygen at rest or on exertion CTA negative for pulmonary emboli discharge to home, stay well nourished, well hydrated, get rest is outside the window of when he would need to quarantine as he is 14 days from positive test (2) Hypoxia: Secondary to COVID-19 No history of pulmonary disease or hypoxia in the past weaned down to room air quickly 2 step on day of discharge showed no need for home oxygen (3) Hypothyroidism: Continue levothyroxine (4) DVT prophylaxis: Elevated d-dimer. No tachycardia to suggest PE. However will treat with higher dose lovenox 40mg SQ BID. Total Time Total Time Spent Total Time Spent (In Minutes): 31 minutes Total Time Includes: Examination of the Patient, Discharge Planning and Medication Reconciliation Discharge Plan Discharge Items Patient Disposition: Home - Self-Care Reason For Visit: Hypoxia, COVID-19 Discharge Diagnosis: COVID 19 pneumonia Acute hypoxia, resolved Condition on Discharge: Good Goals: stay well nourished, well hydrated get rest Activity: Resume your previous activity Non-emergency contact: Primary Care Provider Call non-emergency contact if: you have any medication questions, your symptoms worsen and you have a fever Follow-up/Referrals: Alexis Coats [Primary Care Provider] - (one week) Diet: Regular Addtl Attending Provider Instructions: Medications: - DEXAMETHASONE: 6mg daily for three more days, will be 7 days total COVID 19 pneumonia, acute hypoxia much improved, off of oxygen, 2 step today showed no need for oxygen at rest and on exertion complete 3 more days of dexamethasone stay well hydrated, well nourished, get rest but also maintain exercise (walking) you are safe to travel to [place] on 05/29 as you are more than 10 days out from positive test Pending Studies at Discharge: No Stand-Alone Forms: My [facility] [employer], Smoking Cessation Medications and DC Order Prescriptions: New dexamethasone 2 mg tablet 6 mg PO DAILY 3 Days Qty: 9 RF: 0 Continued aspirin 81 mg Tablet,Delayed Release (Dr/Ec) 81 mg PO QAM Qty: 0 RF: 0 acetaminophen [Tylenol Extra Strength] 500 mg Tablet 1,000 mg PO Q6H PRN (Reason: fever/pain) RF: 0 levothyroxine 88 mcg tablet 88 mcg PO QAM RF: 0 zinc 50 mg Tablet 50 mg PO QAM RF: 0 cholecalciferol (vitamin D3) [Vitamin D3] 25 mcg (1,000 unit) Tablet 25 mcg PO QAM RF: 0 Discharge Orders: Discharge Order (Routine); Ordered 05/20/20 Ordered By: Wisam Landry/Other Patient Handouts: COVID-19 Home Care, Caring for Someone Who Has COVID-19, Disinfecting Your Home of COVID-19, How COVID-19 Spreads Admission Data Admit Date/Time: 05/19/20 09:27 Attending Provider: Wisam Pimentel Admit Provider: Angel Starr Primary Care Provider: Alexis Coats Other Providers: Angel Starr Other Interventions: *Nursing Shift Assessment Last Done: 05/20/20 08:00 Discharge Summary Assessment (RN) Last Done: 05/20/20 13:30 Coding Level of Care Code D/C Day Management >30 mins Diagnoses COVID-19 U07.1 Hypoxia R09.02 Hypothyroidism E03.9 DVT prophylaxis Z29.9
== END 2020-05-20 15:14 | disposition home or self-care (01) | DRG 177 ==
LOC: EDINP 10:27 → ED 10:27 → EDINP 16:10 → SUATTDRO 16:10 → 3E 05-18 20:47